=== PATIENT | male | born 1955 | race Caucasian/White ===

== ENCOUNTER 2023-01-15 02:36 | Emergency (ER) | payer MEDICARE, MEDICAID ==
[~2023-01-15] VITALS: Ht 190.5 cm; Wt 160.9 kg
[2023-01-15 03:47] LABS: BASOPHILS # (AUTO) 0.1 X10'3 (0-0.2); BASOPHILS % (AUTO) 0.8 % (0-1); EOSINOPHILS # (AUTO) 0.2 X10'3 (0-0.9); EOSINOPHILS % (AUTO) 2.5 % (0-6); HEMATOCRIT 44.5 % (42.0-52.0); LYMPHOCYTES # (AUTO) 1.4 X10'3 (1.1-4.8); LYMPHOCYTES % (AUTO) 20.8 % (21-51); MEAN CORPUSCULAR HEMOGLOBIN 30.1 PG (27.0-31.0); MEAN CORPUSCULAR HGB CONC 33.8 g/dL (33.0-36.5); MEAN CORPUSCULAR VOLUME 89.2 FL (78-98); MEAN PLATELET VOLUME 6.9 FL (7.4-10.4); MONOCYTES # (AUTO) 0.5 X10'3 (0-0.9); MONOCYTES % (AUTO) 7.8 % (2-12); NEUTROPHILS # (AUTO) 4.7 X10'3 (1.8-7.7); NEUTROPHILS % (AUTO) 68.1 % (42-75); PLATELET COUNT 238 X10'3 (140-440); RED BLOOD COUNT 4.99 X10'6 (4.70-6.10); RED CELL DISTRIBUTION WIDTH 13.9 % (11.5-14.5); WHITE BLOOD COUNT 6.9 X10'3 (4.5-11.0)
[2023-01-15 04:04] LABS: ALANINE AMINOTRANSFERASE 34 U/L (12-78); ALBUMIN 3.5 G/DL (3.4-5.0); ALBUMIN/GLOBULIN RATIO 0.9 (1.1-1.5); ALKALINE PHOSPHATASE 110 IU/L (46-116); ANION GAP 5 (8-16); ASPARTATE AMINO TRANSFERASE 26 U/L (10-37); BILIRUBIN,TOTAL 0.6 MG/DL (0.1-1.0); BLOOD UREA NITROGEN 16 MG/DL (7-18); BUN/CREATININE RATIO 12.1 (10.0-20.0); CALCIUM 8.9 MG/DL (8.5-10.1); CHLORIDE 105 MMOL/L (99-107); CREATININE 1.32 MG/DL (0.60-1.10); GLUCOSE 125 MG/DL (70-104); SODIUM 140 MMOL/L (135-145); TOTAL CARBON DIOXIDE 30.5 MMOL/L (24-32); TOTAL PROTEIN 7.5 G/DL (6.4-8.2); eGFR 54 ML/MIN
[2023-01-15 06:02] LABS: CLARITY,URINE CLEAR (Clear); COLOR,URINE YELLOW (Yellow); GLUCOSE, URINE NEGATIVE (Neg); KETONES,URINE NEGATIVE (Neg); LEUKOCYTE ESTERASE ,URINE NEGATIVE (Neg); NITRITES, URINE NEGATIVE (Neg); OCCULT BLOOD,URINE NEGATIVE (Neg); PROTEIN,URINE NEGATIVE (Neg); UROBILINOGEN,URINE 0.2 E.U/dL (0.2-1.0)
[2023-01-15 06:28] LABS: UA COLLECTION TYPE VOIDED
[2023-01-15 06:49] VITALS: BP 145/82
== END 2023-01-15 06:40 | disposition home or self-care (01) ==
LOC: ER 02:36
DX: R53.1 Weakness (principal); F32.A Depression, unspecified; E78.00 Pure hypercholesterolemia, unspecified; I10 Essential (primary) hypertension; J45.909 Unspecified asthma, uncomplicated; K21.9 Gastro-esophageal reflux disease without esophagitis; Z91.041 Radiographic dye allergy status
CPT/HCPCS: 36415; 71045; 80053; 81003; 83880; 84484; 85025; 93005; 99285

== ENCOUNTER 2023-03-16 21:38 | Emergency (ER) | payer MEDICARE, MEDICAID ==
[~2023-03-16] VITALS: Ht 190.5 cm; Wt 156.0 kg
[2023-03-16 21:51] VITALS: TEMP 97.5
[2023-03-17 03:00] VITALS: BP 163/92; PULSE 62; RESP 18; O2SAT 98
== END 2023-03-17 03:23 | disposition home or self-care (01) ==
LOC: ER 21:39
DX: S80.11XA Contusion of right lower leg, initial encounter (principal); E78.00 Pure hypercholesterolemia, unspecified; I10 Essential (primary) hypertension; J45.909 Unspecified asthma, uncomplicated; K21.9 Gastro-esophageal reflux disease without esophagitis; Z91.041 Radiographic dye allergy status; W19.XXXA Unspecified fall, initial encounter; Y93.89 Activity, other specified; Y92.89 Other specified places as the place of occurrence of the external cause; Y99.8 Other external cause status
CPT/HCPCS: 73551; 73564; 73590; 99284

== ENCOUNTER 2024-12-16 20:03 | Emergency (ER) | payer MEDICARE, MEDICAID ==
[~2024-12-16] VITALS: Ht 193 cm; Wt 162.0 kg
--- NOTE | 2024-12-16 21:26 | Physician Documentation ---
History of Present Illness ~ Chief Complaint: Leg Pain Stated Complaint: LEG PAIN Time Seen by MD: 20:37 Primary Medical Doctor: [facility] Mode of Arrival: EMS HPI This is a 69-year-old male who presents EMS with right knee and lower extremity pain grossly worsening for the past five months, patient reports that he has being worked up for this by his primary care provider and had imaging recently though has not seen his primary care provider for imaging results yet. Patient reports today the pain became so worse when walking on his right leg that he is unable to ambulate anymore. Patient received 1 g of IV Tylenol by EMS prior to arrival and patient reports adequate decrease in pain. Patient is requesting assistance so that he is able to ambulate short distances in order to stay independent. Patient reports no other acute symptoms or concerns including no chest pain or shortness of breath. Tetanus witin 5 years: Yes Medication Reconciliation Allergies: Coded Allergies: iodine (Verified Allergy, Unknown, 01/27/09) Past Medical History Past Medical History: Parkinson's Disease, Peripheral Neuropathy, Angina, Coronary Artery Disease, High Cholesterol, Hypertension, Asthma, GERD, Depression Alcohol Use: None Drug Use: none Lives with: Family Review of Systems ROS Right leg pain as stated above in the HPI, otherwise all systems are reviewed and negative. Physical Exam Vital Signs: Temperature: 97.7, Source: Temporal, Heart Rate: 59, Respiratory Rate: 16, BP: 170/82, Pulse Oximetry: 99, Weight: 162.000 Oxygen Flow Rate: 0 Physical Exam VITALS: Reviewed and as above. GENERAL: Alert, nontoxic appearing, no apparent distress. RESPIRATORY: No increased work of breathing, no respiratory distress, speaking in full clear sentences MUSCULOSKELETAL: Right leg not edematous as compared to left leg, right knee tender to lateral aspect extending into lateral aspect of right calf Progress Results/Orders Results/Orders Orders - MEKHI MIXON Ortho Orders (12/16/24 ) Vital Signs 12/16/24 12/16/24 12/16/24 12/16/24 20:12 20:25 20:25 21:27 Temp 97.7 Pulse 58 59 60 Resp 18 16 16 B/P (MAP) 170/82 170/82 (111) 165/82 (109) Pulse Ox 100 99 99 O2 Flow Rate 0 0 12/16/24 21:49 Temp 97.7 Resp 18 B/P (MAP) 167/74 Pulse Ox 100 Medical Decision Making Findings This 69-year-old male presented with five months of worsening right knee and lower leg pain which is being worked up by his primary care provider, patient's primary concern today is his inability to ambulate on the leg in requesting some sort of assistance to allow him to continue to ambulate and be independent, I discussed with the patient has some options and with shared decision-making patient will be placed on crutches until he can follow up with his primary care provider for a referral for another mobility device and for definitive management of his right leg pain. As patient just recently had outpatient imaging and is following up closely with his primary care provider further imaging was not indicated, patient reported pain was adequately controlled with pain medications given by EMS therefore no further pain medication given or prescribed. Patient was placed on properly fitting crutches by windshield technician and was observed ambulating without difficulty on crutches. Patient provided home care instructions and return to care precautions which she verbalized understanding of. General Diff Dx:Considerations: Include: Fracture Knee Diff Dx:Considerations: Include: Arthritis, Contusion, DJD, Gout, Meniscus injury, Neurovascular injury, Rheumatoid arthritis, Septic, Sprain Departure Disposition: 01 HOME / SELF CARE / HOMELESS Impression: Primary Impression: Right leg pain Condition: Improved Discharge Instructions: Crutch Use, Adult, [id number] Additional Instructions: Please use the crutches to rest your right leg and to assist with your mobility. You may use ibuprofen and or Tylenol as needed for pain as directed by [id number] packaging. Please follow up with your primary care provider in the next few days. Please return to the emergency department for any new or worsening concerning symptoms. Referrals: NO PRIMARY CARE PROVIDER (PCP) Education Educated: Patient Educated regarding: diagnosis, treatment, prognosis, need for follow up Signature Scribe Signature: No scribe Attestation: The note accurately reflects work and decisions made by me.NADEEM Duval 12/17/24 01:51 MEKHI MIXON December 16, 2024 21:26
[2024-12-16 21:27] VITALS: PULSE 60
[2024-12-16 21:49] VITALS: BP 167/74; RESP 18; TEMP 97.7; O2SAT 100
== END 2024-12-16 21:54 | disposition home or self-care (01) ==
LOC: ER 20:04
DX: M79.661 Pain in right lower leg (principal); M25.561 Pain in right knee; E78.00 Pure hypercholesterolemia, unspecified; I10 Essential (primary) hypertension; I25.10 Atherosclerotic heart disease of native coronary artery without angina pectoris; J45.909 Unspecified asthma, uncomplicated; Z88.8 Allergy status to other drugs, medicaments and biological substances; Z91.041 Radiographic dye allergy status
CPT/HCPCS: 99284